=== PATIENT | male | born 2005 | race Caucasian/White ===

== ENCOUNTER 2024-06-12 10:43 | Day surgery (SDC) | payer OTHER ==
[~2024-06-12] VITALS: Ht 182.9 cm; Wt 105.7 kg
[~2024-06-12 10:43] MED LIST: LIDOCAINE 2% 100MG/5ML SDV (FOR ANES.) As Ordered ONE; ONDANSETRON 4MG 2ML VIAL As Ordered ONE; fentaNYL 100 MCG/2 ML INJECTION As Ordered ONE; propofoL 200 MG/20 ML VIAL As Ordered ONE
[2024-06-12] MEDS ORDERED: LR 1,000 ML IV SCH ×2 (11:00→17:20)
[2024-06-12] MEDS ORDERED: ROCURONIUM BROMIDE 50MG/5ML VIAL As Ordered ONE (11:21)
[2024-06-12] MEDS ORDERED: SUGAMMADEX SODIUM 500 MG/5 ML VIAL (BRIDION) As Ordered ONE (11:23)
[2024-06-12] MEDS: dexAMETHasone 10MG/1ML VIAL PRES.FREE PN ONE (11:31)
[2024-06-12] MEDS: LIDOCAINE 1% SDV 5ML VIAL PN ONE (11:31)
[2024-06-12] MEDS: ROPIvacaine 0.5% 30ML VIAL PN ONE (11:31)
[2024-06-12] MEDS ORDERED: dexmedeTOMIDine (4MCG/ML)200MCG/50ML BTL (PRECEDEX) As Ordered ONE (11:33)
[2024-06-12] MEDS ORDERED: ACETAMINOPHEN 1000MG/100ML IV BAG As Ordered ONE (11:34)
[2024-06-12] MEDS: fentaNYL 100 MCG/2 ML INJECTION IV PRN (11:36)
[2024-06-12] MEDS: MIDAZOLAM INJ 2MG/2ML VIAL IV PRN (11:36)
[2024-06-12] MEDS: TRANEXAMIC ACID 100 MG/ML 10ML VIAL As Ordered ONE (11:50)
[2024-06-12] MEDS: TRANEXAMIC ACID 100 MG/ML 10ML VIAL IV ONE (11:50)
[2024-06-12] MEDS: ceFAZolin SOD 2 GM in IV 1 EA IV ONE (12:12)
[2024-06-12] MEDS: VANCOMYCIN 1000MG/20ML VIAL As Ordered ONE (13:25)
[2024-06-12] MEDS ORDERED: ESMOLOL INJ 100MG/10ML VIAL As Ordered ONE (13:36)
[2024-06-12] MEDS ORDERED: NALOXONE INJ 0.4MG/1ML VIAL As Ordered ONE (14:04)
[2024-06-12] MEDS ORDERED: oxyCODONE 5MG TAB PO PRN (14:10)
[2024-06-12] MEDS ORDERED: ONDANSETRON 4MG 2ML VIAL IV PRN (14:10)
[2024-06-12] MEDS ORDERED: fentaNYL 100 MCG/2 ML INJECTION IV PRN (14:10)
[2024-06-12 15:41] VITALS: BP 137/65; TEMP 97.4; O2SAT 97
== END 2024-06-12 15:47 | disposition home or self-care (01) ==
LOC: M SDC 10:43
PROVIDERS: ATTEND Orthopaedic Surgery
DX: M25.372 Other instability, left ankle (principal); F17.210 Nicotine dependence, cigarettes, uncomplicated
CPT/HCPCS: 27696; 76000; C1713; J0131; J0690; J1100; J1805; J2250; J2310; J2405; J3010; J3370

== ENCOUNTER 2024-07-18 15:42 | Emergency (ER) | payer OTHER ==
[~2024-07-18] VITALS: Ht 182.9 cm; Wt 106.2 kg
[2024-07-18 15:48] VITALS: TEMP 98.8; O2SAT 99
[2024-07-18 15:49] VITALS: BP 146/98
[2024-07-18] MEDS ORDERED: ASPI81CH33 PO (15:54)
[2024-07-18] MEDS ORDERED: GABA-1172 PO (17:47)
== END 2024-07-18 18:15 | disposition home or self-care (01) ==
LOC: M ED 15:42
DX: M25.572 Pain in left ankle and joints of left foot (principal); Z79.1 Long term (current) use of non-steroidal anti-inflammatories (NSAID); Z79.899 Other long term (current) drug therapy

== ENCOUNTER → 2024-11-10 | Outpatient (CLI) | payer OTHER ==
[~2024-11-10] MED LIST changes: +ASPI81CH33 PO; +GABA-1172 PO; +ISOVUE-370 76% 100ML VIAL ONE; -LIDOCAINE 2% 100MG/5ML SDV (FOR ANES.) As Ordered ONE; -ONDANSETRON 4MG 2ML VIAL As Ordered ONE; -fentaNYL 100 MCG/2 ML INJECTION As Ordered ONE; -propofoL 200 MG/20 ML VIAL As Ordered ONE
== END ==
LOC: M PLAIMG 07:27
DX: R22.1 Localized swelling, mass and lump, neck (principal)

== ENCOUNTER → 2024-11-11 | Outpatient (CLI) | payer OTHER ==
[~2024-11-11] MED LIST changes: -ISOVUE-370 76% 100ML VIAL ONE
[2024-11-11 13:17] VITALS: TEMP 98
[2024-11-11 14:10] VITALS: BP 172/90; O2SAT 99
[2024-11-11] MEDS: LIDOCAINE 1% MDV 20ML VIAL IM ONE (14:47)
== END ==
LOC: M IRPRO 12:59
PROVIDERS: ATTEND Otolaryngology
DX: E04.1 Nontoxic single thyroid nodule (principal)